=== PATIENT | male | born 1970 | race Hispanic/Latino ===

== ENCOUNTER 2018-11-25 08:22 | Outpatient (CLI) | payer BC, OTHER ==
[2018-11-25] MEDS ORDERED: Sodium Chloride 0.9% 15 ML NEB ONE (09:00)
[2018-11-25] MEDS ORDERED: Lidocaine 2% PF 100 mg/5 ml Syringe ONE (09:00)
--- NOTE | 2018-11-25 23:48 | HP ---
HISTORY OF PRESENT ILLNESS: Mr. Luis Angel Bernstein is a very pleasant 48-year-old gentleman, accompanied by his spouse, who presents [facility] the [facility] for evaluation of a nonhealing surgical wound subsequent to right whvzc-qsf-rtol amputation. The patient's states that Mr. Bernstein underwent left nbbun-pog-qgei amputation in March of 2018. She reports that the patient underwent right hdbaz-fgt-yjfd amputation in August of this year. She states that the wound was left open at surgery for healing by secondary intention. The patient underwent right ocmzw-qiz-bmkx amputation at [facility]. The patient is currently receiving dressing changes with the assistance of Home Health. The patient was referred to the Wound Center by Dr. Catrachito Angeles. PAST MEDICAL HISTORY: 1. End-stage renal disease. 2. Hypertension. 3. Diabetes mellitus type 2. 4. Cirrhosis. 5. Nephrolithiasis. PAST SURGICAL HISTORY: 1. Right eye surgery for vitreous hemorrhage. 2. Dialysis access procedures. 3. Right qkmmn-sxk-ctdz amputation in August of this year. 4. Left kxaia-uon-pydf amputation in March of 2018. MEDICATIONS: 1. Hydralazine. 2. Coreg. 3. Amlodipine. 4. Tylenol as needed. ALLERGIES: NO KNOWN DIAGNOSED ALLERGIES. SOCIAL HISTORY: Negative for tobacco or EtOH use. FAMILY HISTORY: Negative for diabetes mellitus or coronary artery disease. PHYSICAL EXAMINATION: VITAL SIGNS: Temperature 98.7, pulse 71, respirations 17, blood pressure 134/73. Accu-Chek 79. GENERAL: A 48-year-old gentleman, sitting on wheelchair in examination room, in no acute distress. HEENT: Normocephalic and atraumatic. NECK: No nuchal rigidity. CHEST: Clear to auscultation. CARDIOVASCULAR: Regular rate and rhythm. ABDOMEN: Soft. EXTREMITIES: A large wound of the right pyhna-cqb-wyzj amputation stump is present which measures approximately 2.9 x 12.3 cm. Granulation tissue is visible within the wound margins. Necrotic and nonviable tissue present within the wound margins was debrided with an excisional full-thickness debridement with the use of scissors. No purulent drainage is associated with the wound. No cellulitis of the right BKA stump is appreciated. No maceration of the skin of the periwound is noted. A popliteal pulse is palpable on the right. No significant edema of the right mvcja-dek-qqlt amputation stump is appreciated on exam today. ASSESSMENT AND PLAN: 1. Nonhealing surgical wound of right swpan-ydi-wwbx amputation stump. Arrangements will be made for the initiation of negative pressure therapy with dressing changes of the wound VAC 3 times per week with the assistance of Home Health. No antibiotics will be prescribed today based upon the appearance of the wound. I will see Mr. Berntsein 2 weeks after negative pressure therapy has been initiated. The patient and his understand and are in agreement with the preceding treatment plan. 2. End-stage renal disease. 3. Hypertension. 4. Diabetes mellitus type 2. 5. Cirrhosis. 6. Nephrolithiasis. Job ID: [id number]
== END 2018-11-25 08:23 | disposition home or self-care (01) ==
LOC: WCC 08:22
PROVIDERS: ATTEND Family Medicine
DX: T81.89XD Other complications of procedures, not elsewhere classified, subsequent encounter (principal); I12.0 Hypertensive chronic kidney disease with stage 5 chronic kidney disease or end stage renal disease; E11.22 Type 2 diabetes mellitus with diabetic chronic kidney disease; N18.6 End stage renal disease; K74.60 Unspecified cirrhosis of liver; N20.0 Calculus of kidney
CPT/HCPCS: 11042; 11045; 36416; 99203; A4218; G0463; J2001

== ENCOUNTER 2019-07-04 18:41 | Inpatient (IN) | payer BC ==
[~2019-07-04 18:41] MED LIST: Naloxone HCl 0.4 mg/ml Vial ONE
[2019-07-04] MEDS ORDERED: Fentanyl 100 MCG/2 ML VIAL ONE (19:09)
--- NOTE | 2019-07-04 19:54 | RAD ---
TWO VIEWS LEFT FEMUR: History: Left upper leg pain. FINDINGS: Two views of the left femur are limited secondary to the patient's positioning. The patient is status post below the knee amputation. There is no evidence of acute fracture or dislocation. Mild degenera tive change is seen in the hip. Extensive vascular calcifications are seen. IMPRESSION: No evidence of acute osseous abnormality. POS: C
[2019-07-04] MEDS ORDERED: Morphine 4 MG/ML VIAL ONE ×2 (20:42→22:15)
[2019-07-04 20:58] LABS: ALT (SGPT) 27 U/L (8-55); AST (SGOT) 27 U/L (5-34); Albumin 3.2 g/dL (3.5-5.0); Alkaline Phosphatase 972 U/L (40-110); Anion Gap 19 mmol/L (10-20); BUN (Urea Nitrogen) 85 mg/dL (8.9-20.6); Bilirubin, Total 1.1 mg/dL (0.2-1.2); Calc. Creatinine Clearance 0 mL/min (70-130); Calcium 8.5 mg/dL (7.8-10.44); Carbon Dioxide 27 mmol/L (22-29); Chloride 99 mmol/L (98-107); Estimated GFR-MDRD 11; Globulin 3.9 g/dL (2.4-3.5); Glucose 124 mg/dL (70-105); Potassium 6.5 mmol/L (3.5-5.1); Protein, Total 7.1 g/dL (6.0-8.3); Sodium 138 mmol/L (136-145)
[2019-07-04 21:00] LABS: Mean Corpuscular Volume 91.7 fL (78.0-98.0)
[2019-07-04 21:14] LABS: #Eosinphils 0.3 thou/uL (0.0-0.7); #Lymphocytes 1.9 thou/uL (1.20-3.40); #Monocytes 0.6 thou/uL (0.11-0.59); %Basophils 0.6 % (0.0-1.0); %Lymphocytes 27.8 % (21.0-51.0); %Neutrophils 58.6 % (42.0-75.0); Hemoglobin 11.5 g/dL (14.0-18.0); MDiff Complete? YES; Mean Corpuscular HGB CONC 32.5 g/dL (32.0-36.0); Mean Corpuscular Hemoglobin 29.8 pg (27.0-31.0); Mean Platelet Volume 9.6 fL (7.4-10.4); Platelet Clumps SLIGHT; Platelet Count 136 thou/uL (130-400); Platelet Morphology Comment Appears Adequate; RBC Distribution Width 14.7 % (11.5-14.5); Red Blood Cell (RBC) Count 3.85 mill/uL (4.70-6.10); White Blood Cell (WBC) Count 6.9 thou/uL (4.8-10.8)
--- NOTE | 2019-07-04 21:51 | RAD ---
Left hip one view HISTORY: Fall. Fracture. FINDINGS: Marked of the subtrochanteric fracture of the proximal left femur, with severe varus angula tion. One shaft width posterior displacement of the shaft in relation to the proximal femur. Osseous structures are demineralized. IMPRESSION: Subtrochanteric fracture left hip. Osteoporosis.
[2019-07-04 22:47] LABS: Prothrombin Time 13.2 SEC (12.0-14.7)
[2019-07-04] MEDS ORDERED: Morphine 2 MG/ML SYRINGE SLOW IVP PRN (22:50)
[2019-07-04] MEDS ORDERED: Dextrose 50% Abboject 50 ML SYRINGE SLOW IVP PRN (22:50)
[2019-07-04] MEDS ORDERED: Ondansetron PF 4 MG/2 ML Vial IVP PRN (22:50)
[2019-07-04] MEDS ORDERED: Insulin Regular 300 UNITS/3 ML VIAL SC PRN (22:50)
[2019-07-04] MEDS ORDERED: Dextrose 5% in Water 1,000 ML IV PRN (22:50)
--- NOTE | 2019-07-04 23:05 | RAD ---
Chest one view HISTORY: Dyspnea. COMPARISON: 07/16/2016. FINDINGS: Cardiac silhouette is magnified and enlarged. Pulmonary vasculature slightly engorged with bilateral perihilar infiltrate, right greater than left. Blunting of the right lateral costophrenic angle. No evidence of pneumothorax. IMPRESSION: Cardiomegaly with pulmonary vascular congestion and right pleural fluid. Consider CHF.
[2019-07-04 23:25] LABS: Magnesium 2.2 mg/dL (1.6-2.6); Phosphorus 5.9 mg/dL (2.3-4.7)
[2019-07-04] MEDS ORDERED: hydrALAZINE 20 MG/ML VIAL ONE (23:47)
[2019-07-05 00:23] LABS: HBSAg Index 0.16 S/CO (0-0.99); Hep B Surf Ag Non-Reactive S/CO (NonReactive)
[2019-07-05] MEDS ORDERED: Morphine 4 MG/ML VIAL ONE (00:25)
--- NOTE | 2019-07-05 00:53 | HP ---
TRAUMA SURGEON: Roger Richmond MD CONSULTING PHYSICIANS: Gus Lam MD and Dr. Angeles. HISTORY OF PRESENT ILLNESS: The patient is a 48-year-old male, presented to the emergency department after a mechanical fall out of his wheelchair with left hip pain. The patient was found to have a left subcapital hip fracture. He has a history of ESRD on dialysis, hypertension, diabetes, cirrhosis and nephrolithiasis. He is a dialysis patient and receives dialysis Friday, Friday, and Friday. He also has abrasions to the bilateral distal portion of his stump at the location of his bilateral BKA . Upon evaluation, the patient was alert and complained of left-sided hip tenderness. He denied any chest pain or shortness of breath. He is hyperkalemic and we are planning to dialyze him today. He denies any loss of consciousness. He reports that he fell out of his wheelchair as he was trying to maneuver around furniture to go from the [employer] tree to the kitchen. REVIEW OF SYSTEMS: All additional 10-point review of systems negative except as indicated above. PAST MEDICAL HISTORY: ESRD on dialysis, hypertension, diabetes, cirrhosis, and nephrolithiasis. PAST SURGICAL HISTORY: He has bilateral BKA, right eye surgery, dialysis access placement. SOCIAL HISTORY: The patient lives at home with his . He denies tobacco, drug, or alcohol use. MEDICATIONS: 1. Hydralazine. 2. Carvedilol. 3. Clonidine. ALLERGIES: NO KNOWN DRUG ALLERGIES. PHYSICAL EXAMINATION: VITAL SIGNS: Temperature 97.8, , oxygen saturation 95% on room air, and blood pressure 193/102. PRIMARY SURVEY: Airway intact. Adequate breath sounds bilaterally. 2+ pulses in the bilateral radials and femorals. He has abrasions to his bilateral BKA site, though bleeding is controlled. GCS 15. Gross motor and sensation are intact. No bruising or external bleeding. SECONDARY SURVEY: HEAD: Normocephalic and atraumatic. No gross palpable skull deformities. EYES: Pupils 3-2, equal, round, and reactive to light. ENT: No hemotympanum. No epistaxis. No septal hematoma. Midface stable to manipulation. No blood in the oropharynx. Dentition is intact. No anterior neck injury/crepitus/tenderness. C-SPINE: No step-offs or deformities. Nontender. C-collar not in place. CHEST: Nontender. No crepitus. No abrasions or ecchymosis noted. Equal chest movement. ABDOMEN: Soft, nontender, and nondistended. PELVIS: Stable to palpation. Nontender. No abrasions or ecchymosis. RECTAL: Deferred. GENITOURINARY: Deferred. EXTREMITIES: Bilateral BKA with small bilateral abrasions to those lower extremities. Bleeding is controlled. 2+ pulses in bilateral radials and femorals. BACK/SPINE: No step-offs or deformities or tenderness to palpation of the thoracic or lumbar spine. No abrasions or ecchymosis. NEUROLOGIC: 5/5 strength in bilateral client technologies specialist and lower extremities. Gross normal sensation x4 extremities. LABORATORY FINDINGS: White count 6.9, hemoglobin 11.5, hematocrit 35.3, platelets 136. INR 1.0. Sodium 138, potassium 6.5, chloride 99, bicarb 27, BUN 85, creatinine 5.42, glucose 124, phosphorus 5.9, magnesium 2.2, AST 27, ALT 27, alkaline phosphatase 972, bilirubin 1.1. DIAGNOSTIC FINDINGS: X-ray of the left femur demonstrates no evidence of acute osseous abnormality. X-ray of the left hip demonstrate subtrochanteric fracture of the left hip. Chest x-ray demonstrates cardiomegaly and pulmonary vascular congestion and right pleural fluid. Consider CHF. ASSESSMENT: 1. Status post mechanical fall from wheelchair. 2. Left subtrochanteric hip fracture. 3. Hyperkalemia. 4. Hypertension, uncontrolled. 5. Abrasions to bilateral BKA. 6. History of end-stage renal disease, hypertension, diabetes, cirrhosis, and nephrolithiasis. PLAN: The patient will be admitted to the surgical floor. He is to receive dialysis today for hyperkalemia. He will go to the OR tomorrow with Orthopedic Surgery for fixation of the left hip. We will restart all of his home antihypertensive medications. ER physician to give the patient medications for hypertension and pain control. Trauma will take over from there and if the patient continues to be hypertensive, we will treat that. He will be n.p.o. We will not give him any IV fluids at this time. He is to go to the OR with Orthopedic Surgery tomorrow. Postoperatively, he will work with Physical and Occupational Therapy. The patient's data power consultant is Dr. Angeles. He was contacted by the emergency room physician and is coordinating dialysis for the patient jenny. Job ID: [id number]
[2019-07-05] MEDS: Morphine 4 MG/ML VIAL SLOW IVP PRN ×4 (02:46→12:33)
[2019-07-05] MEDS: hydrALAZINE 20 MG/ML VIAL SLOW IVP PRN ×2 (04:44→12:07)
[2019-07-05 04:52] LABS: #Eosinphils 0.1 thou/uL (0.0-0.7); #Lymphocytes 1.1 thou/uL (1.20-3.40); #Monocytes 0.8 thou/uL (0.11-0.59); #Neutrophils 6.3 thou/uL (1.40-6.50); %Basophils 0.5 % (0.0-1.0); %Eosinophils 1.2 % (0.0-10.0); %Lymphocytes 13.2 % (21.0-51.0); %Monocytes 9.2 % (0.0-10.0); %Neutrophils 75.9 % (42.0-75.0); Hemoglobin 11.2 g/dL (14.0-18.0); Mean Corpuscular HGB CONC 32.8 g/dL (32.0-36.0); Mean Corpuscular Hemoglobin 29.5 pg (27.0-31.0); Mean Platelet Volume 9.4 fL (7.4-10.4); Platelet Count 156 thou/uL (130-400); RBC Distribution Width 14.5 % (11.5-14.5); White Blood Cell (WBC) Count 8.3 thou/uL (4.8-10.8)
[2019-07-05 05:25] LABS: Anion Gap 16 mmol/L (10-20); BUN (Urea Nitrogen) 30 mg/dL (8.9-20.6); Calc. Creatinine Clearance 30 mL/min (70-130); Calcium 9.3 mg/dL (7.8-10.44); Carbon Dioxide 26 mmol/L (22-29); Chloride 101 mmol/L (98-107); Estimated GFR-MDRD 30; Glucose 96 mg/dL (70-105); Magnesium 1.9 mg/dL (1.6-2.6); Phosphorus 2.9 mg/dL (2.3-4.7); Potassium 3.8 mmol/L (3.5-5.1); Sodium 139 mmol/L (136-145)
--- NOTE | 2019-07-05 07:47 | RAD ---
XR Hip Lt 2-3 View INDICATION: Left hip fracture COMPARISON: July 04, 2019 FINDINGS: Bones: There is diffuse osteopenia. There is a comminuted, varus angulated left hip intertrochanteric fracture. There is prominent lucency surrounding the left knee on the crosstable lateral evaluation. Hip joint: Moderate osteoarthrosis of the left hip. SI joints and symphysis pubis: Radiographically normal. Intrapelvic contents: Visualized bowel gas pattern is within normal limits. Surrounding soft tissues: Radiographically normal. IMPRESSION: 1. Angulated, comminuted, left hip intertrochanteric fracture. 2. Prominent lucency involving the left knee joint. Dedicated left knee radiographs are recommended. This may be projectional in nature and related to the patient's severe osteopenia. Left knee fracture is not excluded.
--- NOTE | 2019-07-05 08:42 | CON ---
DATE OF CONSULTATION: This is Sebastian West PA-C dictating a report for Gus Lam MD. HISTORY OF PRESENT ILLNESS: We were asked by Trauma and the ER to see the patient. The patient's is at the bedside and helping us interpret. He is wheelchair to bedbound male. He has bilateral BKAs. He was getting out of his wheelchair yesterday, slipped. He hit both ends of his stump and they are a little bit raw and bleeding, right worse than left, and he sustained a left subtrochanteric fracture. He is in quite a bit of pain. He is a little contracted up, that is more comfortable for him per his . He is able to straighten both of his legs. There are no other injuries per other than the ones discussed. He was dialyzed last night. He usually gets dialysis on Friday, Wednesdays, and Fridays. His potassium was quite high, but this morning it was down to 3.8. PAST MEDICAL HISTORY: Positive for ESRD on dialysis, hypertension, diabetes, cirrhosis, nephrolithiasis. SURGERIES: Bilateral BKA, right eye surgery, dialysis access placement. SOCIAL HISTORY: Lives at home with his . No alcohol or drug use or tobacco use currently. CURRENT MEDICATIONS: 1. Hydralazine. 2. Carvedilol. 3. Clonidine. HOME MEDICATIONS LIST: Include, 1. Nifedipine. 2. Cipro. 3. Calcium acetate. 4. Tylenol. These have not been verified as of yet. ALLERGIES: NO KNOWN DRUG ALLERGIES. REVIEW OF SYSTEMS: Denies any chest pain or shortness of breath. No bowel or bladder issues currently, but has a lot of left lower extremity pain, especially with any movement. Again, is interpreting for us. PHYSICAL EXAMINATION: GENERAL: Small appearing male. Speech clear per . He is moaning in pain and per , oriented, answering questions well. HEENT: Face is symmetric. Tongue midline. NECK: Supple. Trachea midline. EXTREMITIES: Upper extremities, equal size, shape, and symmetry. Normal bulk and tone with dressing to the right upper extremity, where his dialysis port is located. RESPIRATORY: Respirations 16. No acute distress. EXTREMITIES: Bilateral lower extremities obvious, BKAs, dressing to the right stump. Some mild abrasions of the stump. Any movement of the left hip causes him dire amount of pain. He keeps it in a flexed position as this is more comfortable for him per his . ASSESSMENT: 1. Multiple health issues. 2. Left subtrochanteric fracture. PLAN: We would like to take the patient to the operating room, but health-dueñas, he needs to be cleared by the Trauma team, who is doing medical management, who went over surgery procedure with and , went over the risks and benefits, which are a little bit higher with her , and I explained this, and the patient's questions and concerns were addressed, and they are amenable to go forth with surgery. We just need medical clearance first. Once he is cleared, we will get him on the surgery schedule. If he is not able to go today, we will let him eat and get plan for surgery tomorrow. I have explained this to the and the patient. Again, they have a good understanding of what needs to be done for the patient. Job ID: [id number]
[2019-07-05] MEDS ORDERED: FLU VACC QS2019-20(6MOS UP)/PF 60 MCG/0.5 ML SYRINGE IM ONE (09:00)
[2019-07-05] MEDS ORDERED: Famotidine 20 MG TAB PO SCH (09:00)
--- NOTE | 2019-07-05 09:37 | RAD ---
XR Hip Lt 1 View INDICATION: Left hip fracture COMPARISON: Prior dated July 04, 2019 FINDINGS: Bones: The comminuted left intertrochanteric hip fracture is better demonstrated. There is moderate v arus malalignment remaining. There is diffuse osteopenia. Hip joint: There is moderate osteoarthrosis of the left hip. SI joints and symphysis pubis: Radiographically normal. Intrapelvic contents: Visualized bowel gas pattern is within normal limits. Surrounding soft tissues: There is severe vascular calcifications of the surrounding soft tissues. IMPRESSION: 1. Moderate varus angulated left hip intertrochanteric fracture. 2. Severe osteopenia
[2019-07-05] MEDS: Carvedilol 6.25 MG TAB PO SCH ×2 (09:41→20:58)
[2019-07-05] MEDS: Senokot S 8.6-50 MG TAB PO SCH ×2 (09:41→20:57)
[2019-07-05] MEDS: cloNIDine 0.1 MG TAB PO SCH ×2 (09:41→20:58)
[2019-07-05] MEDS: hydrALAZINE 25 MG TAB PO SCH ×2 (09:41→20:58)
[2019-07-05] MEDS: Polyethylene Glycol 3350 17 GM Packet PO SCH (09:42)
[2019-07-05] MEDS ORDERED: CEFAZOLIN 2 GM in Premix Bag 1 BAG IVPB SCH (09:45)
[2019-07-05] MEDS ORDERED: Ventilator Sedation Protocol 1 EACH FS ONE (13:13)
[2019-07-05] MEDS ORDERED: DISCONTINUE PREVIOUS NARCOTIC PAIN MEDICATIONS AND BENZODIAZEPINES FS SCH (13:15)
[2019-07-05] MEDS ORDERED: Fentanyl BOLUS 250 ML IVPB PRN (13:15)
[2019-07-05] MEDS ORDERED: Propofol 1,000 MG/100 ML VIAL IV PRN (13:15)
[2019-07-05] MEDS ORDERED: Lorazepam 2 MG/ML VIAL SLOW IVP PRN (13:15)
[2019-07-05] MEDS ORDERED: fentaNYL Citrate/PF 2,000 MCG in Sodium Chloride 0.9% 60 ML IV SCH (13:15)
[2019-07-05] MEDS ORDERED: Propofol BOLUS 1,000 MG/100 ML VIAL IV PRN (13:15)
[2019-07-05] MEDS ORDERED: Morphine 2 MG/ML SYRINGE SLOW IVP PRN (13:15)
--- NOTE | 2019-07-05 13:18 | RAD ---
Chest AP view INDICATION: Chest pain COMPARISON: July 04, 2019 FINDINGS: Lungs:Persistent perihilar airspace opacity is seen involving the right and left lungs. Cardiac silhouette:Cardiomegaly persists Pulmonary vasculature:Pulmonary vascular congestion persists Pleural spaces:There are small bilateral pleural effusions are stable Upper abdomen:There is a new gastric catheter projecting below the left hemidiaphragm and beyond the sjnqo-wv-dkjr. Osseous structures: No acute osseous abnormality. Additional findings:The patient is intubated. The ET tube tip projects near the right mainstem bronch us. Recommend retraction of approximately 2 cm. A pacer pad overlies the epigastric abdominal region and left anterior chest wall. IMPRESSION: Interval intubation. ET tube tip projects near the right mainstem bronchus. Recommend ret raction. Findings were called to the CCU nurse caring for this patient who reported that the ET tube tip was retracted. Cardiomegaly, pulmonary vascular congestion and perihilar airspace opacities persist. Small bilateral pleural effusions are stable.
[2019-07-05 13:20] LABS: Actual Bicarbonate (HCO3a) 24.3 mEq/L (22-28); Base Excess (BEa) 1.7 mEq/L (-2.0 to +3.0); CO2 Tension 31.6 mmHg (35.0-45.0); Carboxyhemoglobin (COHb) 1.6 gm% (0.0-3.0); Hemoglobin (Hb) 11.1 g/dL (14.0-18.0); O2 Tension (PaO2) 104.6 mmHg (80.0-100.0); Potassium - ABG Lab 4.47 mmol/L (3.70-5.30)
[2019-07-05 14:21] LABS: CKMB 9.6 ng/mL (0-6.6)
[2019-07-05 14:41] LABS: HBCM Index 0.05 S/CO (0-0.79); HBSAg Index 0.17 S/CO (0-0.99); Hep A IgM AB Non-Reactive (NonReactive); Hep B Surf Ag Non-Reactive S/CO (NonReactive); Hep C IgG Ab Non-Reactive (NonReactive); Hep C Index 0.11 S/CO (0-0.79); Hepatitis B Core IgM Abs Non-Reactive (NonReactive)
--- NOTE | 2019-07-05 15:11 | PRG ---
DATE OF SERVICE: 07/05/2019 SUBJECTIVE: Mr. Bernstein is a 48-year-old man, who is status post bilateral BKA's. The patient has a history of chronic kidney disease, dialysis dependent. He was admitted yesterday following a fall off his wheelchair, sustaining a left subtrochanteric femur fracture. He underwent dialysis yesterday extracting over 3 L. He has been evaluated by Orthopedic Surgery, who was contemplating surgical intervention tomorrow. This morning, at bedside with his in the room, the patient apparently developed a sudden onset difficulty breathing. Jessica cramer was called. The patient never lost his pulse. He did, however, have emesis. The patient was electively intubated in transfer to the Intensive Care Unit. He is currently sedated on propofol. OBJECTIVE: VITAL SIGNS: Noted with a blood pressure of 212/112, pulse 95, respiratory rate 18, oxygen saturation 100% on FiO2 of 100%. HEENT: Pupils equal, round, and reactive to light bilaterally. He has no jugular venous distention noted. HEART: Reveals regular rate and rhythm with 2/6 systolic murmur in the left sternal border. LUNGS: Clear to auscultation bilaterally. Breathing, regular and nonlabored. ABDOMEN: Soft and obese. NEUROLOGIC: At this point is suboptimal. The patient is currently sedated. He was intubated with etomidate and succinylcholine. LABORATORY FINDINGS: Includes arterial blood gas; pH of 7.50, pCO2 of 32, pO2 of 105, base excess 1.7, and this was on FiO2 of 40% post intubation. Troponin I is elevated at 0.518. Metabolic profile this morning included sodium of 139, potassium of 3.8, chloride is 101, bicarb is 26, BUN is 30, creatinine is 2.36, glucose is 137, magnesium is 1.9, and phosphorus is 2.9. CBC this morning as well was noted with 8300 white blood cells, hemoglobin and hematocrit stable at 11.2 and 34.2 respectively. Platelet count 136,000. IMPRESSION: 1. Post injury day #1, status post fall from a wheelchair with a resultant left subtrochanteric femur fracture. 2. Acute posttraumatic respiratory failure. PLAN: 1. We will obtain a 12-lead EKG and echocardiogram to rule out acute myocardial infarction. 2. Surgical intervention will be suspended at this time. We discussed with family with regard to code status and future plans. Prognosis for this patient is quite guarded. Total Critical Care time : 40 minutes Job ID: [id number] MTDD
[2019-07-05 20:00] LABS: Critical Call Chem Troponin I RESULT DECREASING
[2019-07-05 20:20] LABS: CKMB 8.6 ng/mL (0-6.6); Critical Call CKMB RESULT DECREASING
[2019-07-05] MEDS: Famotidine/PF 20 mg/2ml Vial SLOW IVP SCH (20:58)
--- NOTE | 2019-07-06 01:50 | PRG ---
DATE OF SERVICE: 07/05/2019 SUBJECTIVE: The patient was seen this evening during rounds in the ICU, intubated and sedated. The patient reports no acute events since he arrived to the CCU. The patient was intubated after a code blue due to respiratory distress during the day. Since that time, he has been hemodynamically stable on the ventilator. He is following commands and moving all extremities. Occasionally, he will open his eyes while intubated. He does not appear to be in any distress. OBJECTIVE: VITAL SIGNS: Temperature 99.2, pulse 71, respirations 17, oxygen saturation 100% on the ventilator, blood pressure 114/69. GENERAL: Middle-aged male, lying in bed with no signs of acute distress. PULMONARY: Equal chest rise and fall. Clear breath sounds bilaterally. No signs of acute respiratory distress. ABDOMEN: Soft, nontender, nondistended. EXTREMITIES: 2+ pulses in bilateral upper extremities. Bilateral lower extremity with BKA. There are bandages over his BKA abrasions bilaterally. He does have some deformity to the left hip. NEUROLOGIC: GCS is 10-11T, eyes 4/3, verbal 1, motor 6. LABORATORY FINDINGS: There are no new laboratory findings to discuss. DIAGNOSTIC FINDINGS: There are no new diagnostic findings to discuss. ASSESSMENT: 1. Mechanical fall from wheelchair. 2. Left subtrochanteric hip fracture. 3. Hyperkalemia, resolved. 4. Abrasions to bilateral below-knee amputations. 5. Acute respiratory distress, now on ventilator. 6. Elevated troponins, likely secondary to cuq-TO-povpvczrq myocardial infarction. 7. History of end-stage renal disease, on dialysis; hypertension; diabetes; cirrhosis; nephrolithiasis. PLAN: Continue the patient on the ventilator overnight. Continue n.p.o., NG tube to low intermittent wall suction. Continue propofol and fentanyl for sedation and pain control. We will start the patient on IV Pepcid as well. Day Team did speak to Dr. Baird of Cardiology for consult due to rising troponins. He advised us that consult can wait till tomorrow morning. Dr. Aranda will be called tomorrow for an official consult. An echo was completed, which demonstrated EF of 55% to 60% with [id number]-fhnwhsvi tricuspid regurg. Palliative Care has also been consulted for the patient. Ortho to make determination of possible surgical intervention tomorrow after his condition has been monitored overnight and after discussions with family and Palliative Care. Job ID: [id number]
[2019-07-06 04:46] LABS: #Eosinphils 0.1 thou/uL (0.0-0.7); #Lymphocytes 1.2 thou/uL (1.20-3.40); #Monocytes 0.9 thou/uL (0.11-0.59); #Neutrophils 8.3 thou/uL (1.40-6.50); %Basophils 0.3 % (0.0-1.0); %Eosinophils 0.7 % (0.0-10.0); %Lymphocytes 11.4 % (21.0-51.0); %Monocytes 8.8 % (0.0-10.0); %Neutrophils 78.8 % (42.0-75.0); Hemoglobin 9.4 g/dL (14.0-18.0); Mean Corpuscular HGB CONC 32.9 g/dL (32.0-36.0); Mean Corpuscular Hemoglobin 29.8 pg (27.0-31.0); Mean Corpuscular Volume 90.6 fL (78.0-98.0); Platelet Count 125 thou/uL (130-400); RBC Distribution Width 14.8 % (11.5-14.5); Red Blood Cell (RBC) Count 3.16 mill/uL (4.70-6.10); White Blood Cell (WBC) Count 10.6 thou/uL (4.8-10.8)
[2019-07-06 05:08] LABS: Troponin I 5.915 ng/mL (< 0.028)
[2019-07-06 05:23] LABS: Anion Gap 20 mmol/L (10-20); BUN (Urea Nitrogen) 57 mg/dL (8.9-20.6); Calc. Creatinine Clearance 15 mL/min (70-130); Calcium 8.6 mg/dL (7.8-10.44); Carbon Dioxide 22 mmol/L (22-29); Chloride 102 mmol/L (98-107); Estimated GFR-MDRD 13; Glucose 63 mg/dL (70-105); Magnesium 1.9 mg/dL (1.6-2.6); Phosphorus 4.9 mg/dL (2.3-4.7); Sodium 139 mmol/L (136-145)
[2019-07-06 07:33] LABS: Actual Bicarbonate (HCO3a) 21.1 mEq/L (22-28); Calcium, Ionized 1.11 mmol/L (1.12-1.30); Carboxyhemoglobin (COHb) 0.8 gm% (0.0-3.0); O2 Tension (PaO2) 85.8 mmHg (80.0-100.0); Potassium - ABG Lab 4.82 mmol/L (3.70-5.30)
--- NOTE | 2019-07-06 08:52 | RAD ---
CHEST ONE VIEW: INDICATIONS: History of intubation status post respiratory arrest. COMPARISON: Prior exam dated 07/05/2019 at 12:44 p.m. FINDINGS: There is a worsening central edema pattern and bilateral pleural effusions, right greater than left. ET tube and gastric catheter are in the expected positions. Cardiomegaly and pulmonary vascular conge stion persists. Osseous structures are unchanged. IMPRESSION: Worsening congestive heart failure. POS: CET
[2019-07-06] MEDS: Carvedilol 6.25 MG TAB PO SCH ×2 (09:11→20:53)
[2019-07-06] MEDS: hydrALAZINE 25 MG TAB PO SCH ×2 (09:11→20:53)
[2019-07-06] MEDS: cloNIDine 0.1 MG TAB PO SCH ×2 (09:11→20:53)
[2019-07-06] MEDS: Senokot S 8.6-50 MG TAB PO SCH ×2 (09:12→22:10)
[2019-07-06] MEDS: Polyethylene Glycol 3350 17 GM Packet PO SCH (09:12)
[2019-07-06] MEDS: Aspirin Chewable 81 MG TAB PO SCH ×2 (09:14→22:10)
[2019-07-06] MEDS: Famotidine/PF 20 mg/2ml Vial SLOW IVP SCH (09:14)
--- NOTE | 2019-07-06 11:02 | PRG ---
DATE OF SERVICE: 07/06/2019 SUBJECTIVE: Mr. Bernstein is a 48-year-old man, status post bilateral BKA. The patient fell off wheelchair, sustaining a left subtrochanteric hip fracture. Subsequently developed acute respiratory failure yesterday, requiring intubation and admission to the intensive care unit. Additional workup revealed rising troponin I, though no ST elevation on the EKG. Overnight, the patient remains stable. This morning, he is slightly sedated, awakens to voice, and follows commands. He is tolerating hemodialysis. OBJECTIVE: VITAL SIGNS: This morning include blood pressure 127/80, pulse 77, respiratory rate 17, maximum temperature in last 24 hours is 100.1 degrees Fahrenheit, and oxygen saturation is 100% on FiO2 of 40% on mechanical ventilator support. HEART: Regular rate and rhythm with 2/6 systolic murmur in the left sternal border. LUNGS: Clear to auscultation bilaterally. Breathing, regular and nonlabored. ABDOMEN: Soft, nontender, nondistended. NEUROLOGIC: No focal deficits present. LABORATORY FINDINGS: Today includes a CBC with 10,600 white blood cells, hemoglobin and hematocrit 9.4 and 28.6 respectively, platelet count 125,000. Metabolic profile; sodium 139, potassium 5.0, chloride is 102, bicarb is 22, BUN is 57, creatinine is 4.75, glucose is 63, magnesium 1.9, and phosphorus is 4.9. Troponin I yesterday was initially 0.518, increased to 1.746, then 3.154 and this morning at 5.915. IMPRESSION: 1. Acute hhe-FM-ffpewnsff myocardial infarction, although echocardiogram which was obtained yesterday revealed ejection fraction 55% to 60% with normal right ventricular size and function. 2. Acute posttraumatic respiratory failure, improving. 3. Post-injury day #2, status post fall from a wheelchair with a subtrochanteric left hip fracture. 4. Chronic renal failure, dialysis dependent. 5. Acute hypoglycemia. PLAN: 1. Wean and extubate the patient accordingly. 2. Surgical intervention will be suspended at this time as the patient just had an NM. 3. We will start aspirin therapy meanwhile. 4. We will discuss with the patient and family post-extubation with regard to further interventions. Total critical care time is 45 minutes. Job ID: [id number]
[2019-07-06] MEDS ORDERED: EPOETIN ALFA-EPBX (ESRD) 3,000 UNIT/ML VIAL SC SCH (12:00)
[2019-07-06] MEDS ORDERED: traMADol HCl 50 MG TAB PO SCH ×2 (12:00→13:00)
[2019-07-06] MEDS ORDERED: traMADol HCl 50 MG TAB PO PRN (12:15)
[2019-07-06] MEDS ORDERED: Acetaminophen 1,000 MG in Premix Bag 1 BAG IVPB SCH (13:00)
[2019-07-06] MEDS ORDERED: HYDROcodone/Acetaminophen 7.5/325 mg Tablet PO PRN ×2 (13:43)
[2019-07-06] MEDS ORDERED: HYDROcodone/Acetaminophen 10/325 mg Tablet PO PRN ×2 (16:40)
[2019-07-06] MEDS: Cyclobenzaprine 10 MG TAB PO PRN (17:02)
--- NOTE | 2019-07-06 19:30 | CON ---
DATE OF CONSULTATION: 07/06/2019 REASON FOR CONSULTATION: Elevated troponin, recent cardiopulmonary arrest. HISTORY OF PRESENT ILLNESS: Mr. Bernstein is an unfortunate 48-year-old gentleman with history of end-stage renal disease, severe PVD, status post amputation, who recently fell from his wheelchair and broke his hip. He was on the surgical floor, when he developed a respiratory arrest. Jessica cramer was called. He was subsequently intubated. He is currently intubated during my visit. The history was obtained from his . She states he underwent coronary angiography in August 2018 at [facility]. The results are currently not available. She states he is to follow up with [facility] on a yearly basis. She is unsure what the results were. She states coronary angiography was performed and he was therefore able to undergo surgery and amputation to his leg. She states he currently denies chest pain, pressure, or associated symptoms while at home. PAST MEDICAL HISTORY: End-stage renal disease, hypertension, severe PVD, diabetes mellitus, cirrhosis, nephrolithiasis, bilateral BKA, right eye surgery. SOCIAL HISTORY: No current tobacco or alcohol use. HOME MEDICATIONS: Include; 1. Carvedilol. 2. Clonidine. 3. Hydralazine. ALLERGIES: NONE. REVIEW OF SYSTEMS: Unobtainable. He is currently intubated and sedated. PHYSICAL EXAMINATION: GENERAL: The patient is currently intubated and sedated. VITAL SIGNS: Blood pressure 103/67, pulse 75, respirations 20. NEUROLOGIC: The patient is alert and oriented x3 with no focal neurologic deficits. HEENT: Sclerae without icterus. Mouth has moist mucous membranes with normal pallor. NECK: No JVD. Carotid upstroke brisk. No bruits bilaterally. LUNGS: Clear to auscultation with unlabored respirations. BACK: No scoliosis or kyphosis. CARDIAC: Regular rate and rhythm with normal S1 and S2. No S3 or S4 noted. No significant rubs, murmurs, thrills, or gallops noted throughout the precordium. PMI is not displaced. There is no parasternal heave. ABDOMEN: Soft, nontender, nondistended. No peritoneal signs present. No hepatosplenomegaly. No abnormal striae. EXTREMITIES: Bilateral BKA. SKIN: No gross abnormalities. PERTINENT LABORATORY DATA: Hemoglobin 9.4, hematocrit 28.6. Peak troponin 5.9. Creatinine 4.75, sodium 139. IMPRESSION: 1. Recent cardiopulmonary arrest. 2. End-stage renal disease. 3. Elevated troponin. 4. Cirrhosis. 5. Recent hip fracture. RECOMMENDATIONS: I had a long discussion with the about his current situation. He certainly would need to have his hip replaced, but if done within the next several weeks, his risk of complication is elevated. The benefits at this point would have to outweigh the risks. We will have to discuss with Orthopedic Surgery. I did have a brief discussion with Dr. Grider. He states his hip on chest x-ray appears brittle and may not hold even with surgery. At this point, we will continue close observation. Vent management will be per Pulmonary. We will try to obtain records from the [facility] to assess his coronary anatomy noted in August. Otherwise, we will continue to follow with you. Job ID: [id number] MTDD
--- NOTE | 2019-07-07 01:30 | PRG ---
DATE OF SERVICE: 07/06/2019 SUBJECTIVE: Mr. Bernstein is a 48-year-old man status post ground level fall. He sustained left hip fracture. He is also status post bilateral BKA, dialysis, and he also developed respiratory distress in which he required intubation and he was extubated successfully today. He is also under dialysis. Tool Shaper Set Up Operator decided to do dialysis everyday today. Currently, the patient is slightly lethargic. He is able to answer questions. He voiced concern that his left leg is painful to movement. Currently, the patient's nurse reports the appetite has not been good. He is not be able to finish his meal. He is totally . He developed no fever or shortness of breath. PHYSICAL EXAMINATION: VITAL SIGNS: Heart rate is 65 with blood pressure slightly down to systolic 85 and 88, O2 saturation 94% on room air, respiratory rate is 18. LUNGS: The patient is breathing nonlabored. Clear bilaterally. HEART: Regular rate and rhythm. ASSESSMENT: 1. Status post ground level fall. 2. Left hip fracture, conservative treatment at the moment. 3. [id number] myocardial infarction, conservative treatment. 4. Chronic kidney disease, on dialysis. 5. Posttraumatic respiratory failure, improved. 6. Status post bilateral below-knee amputation. 7. Diabetes. PLAN: Check cortisone level. Due to poor appetite, poor intake. The patient under dialysis everyday. Initiate albumin 5% transfusion. We will monitor blood pressure regularly in ICU. Currently, the patient's plan is hospice orientation and the patient is on DNR. Dialysis everyday per Nephrology. Supportive care and nonpharmacological DVT prophylaxis. Job ID: [id number]
[2019-07-07] MEDS ORDERED: Hydrocortisone Sod Succ/PF 100 mg/2 ml Vial IVP SCH (06:30)
[2019-07-07] MEDS ORDERED: Acetaminophen 325 MG TAB PO PRN (06:39)
[2019-07-07] MEDS: Calcium Acetate 667 MG CAP PO SCH ×2 (08:09→17:39)
[2019-07-07] MEDS: Aspirin Chewable 81 MG TAB PO SCH ×2 (08:10→20:02)
[2019-07-07] MEDS: Senokot S 8.6-50 MG TAB PO SCH ×2 (08:10→20:02)
[2019-07-07] MEDS: Polyethylene Glycol 3350 17 GM Packet PO SCH (08:10)
[2019-07-07] MEDS: Carvedilol 6.25 MG TAB PO SCH ×2 (08:11→20:02)
[2019-07-07] MEDS: cloNIDine 0.1 MG TAB PO SCH ×2 (08:11→20:02)
[2019-07-07] MEDS: hydrALAZINE 25 MG TAB PO SCH ×2 (08:11→20:02)
[2019-07-07] MEDS ORDERED: Famotidine/PF 20 mg/2ml Vial SLOW IVP SCH (09:00)
--- NOTE | 2019-07-07 09:12 | PRG ---
DATE OF SERVICE: 07/07/2019 SUBJECTIVE: Mr. Bernstein extubated today. He has no current complaints. He appears to still be groggy. He may have some metabolic encephalopathy. Blood pressure is marginal. PHYSICAL EXAMINATION: VITAL SIGNS: Blood pressure 97/90, pulse 68, respirations 20. LUNGS: Clear to auscultation. HEART: Regular rate and rhythm. ABDOMEN: Soft, nontender, nondistended. EXTREMITIES: Bilateral BKA. PERTINENT LABORATORY DATA: Hemoglobin 9.4, creatinine 4.75. Peak troponin 5.9. Review of medical records from [facility], the patient with moderate disease of the LAD and right coronary artery and circumflex artery. IMPRESSION: 1. Type 2 myocardial infarction, likely due to recent respiratory distress. 2. End-stage renal disease. 3. Cirrhosis. 4. Severe peripheral vascular disease. 5. Recent hip fracture. RECOMMENDATIONS: 1. Discussed the case with Dr. Grider. The patient would be considered high risk for complications if surgery performed given his elevated troponin. He will also likely need repeat angiography for concern of progression of his coronary anatomy. I am unsure whether moderate disease would contribute to troponin of 5.9. 2. After discussing with Dr. Grider, it does not appear like hip replacement would be Mr. Bernstein's best interest. He has significant osteoporosis and unlikely to hold new hardware. This combined with high risk of complications. The risks and benefits ratio are not in Mr. Bernstein's favor. I would certainly agree. From a CV standpoint, I would recommend continued medical therapy. We would not proceed with angiography. We will only proceed with angiography if the decision made to proceed with hip replacement, although would agree with the high risk for morbidity and mortality. Hospice will be introduced. Otherwise, from my standpoint, I have no further recommendations. I will be out of the office for next 5 days. Please re-consult if other questions or concerns arise. Job ID: [id number]
[2019-07-07] MEDS ORDERED: Lorazepam 2 MG/ML VIAL SLOW IVP PRN (12:05)
[2019-07-07] MEDS ORDERED: Morphine 2 MG/ML SYRINGE SLOW IVP PRN (12:06)
--- NOTE | 2019-07-07 12:14 | PDOC.PALCO ---
Palliative Care Consult - Consult Details Requesting Physician: Dr Grider Reason for Consult: family support, complex decision-making Family Members Present: - Pertinent HPI 48 year old male who had a mechanical fall out of the wheelchair and subsequent left hip pain. Evaluation in the emergency room identified hip fracture. Admitted, with subsequent NM. Patient is a dialysis patient and receiving dialysis inpatient. Unable to repair hip due to poor outcome related to osteoarthritis as well as severely compromised cardiovascular status. Dr Grider visited with patient and at length using ranch manager. Continued conversation with patient and his in relation to goals of care. - Pertinent PMH ESRD on dialysis, htn, diabetes, cirrhosis, nephrolithiasis. - Social History Smoking Status: Never smoker Smoking: no tobacco exposure Alcohol Use: none Drug Use History: none Living Situation: - Medications MAR Reviewed: Yes - Allergies Allergies/Adverse Reactions: Allergies Allergy/AdvReac Type Severity Reaction Status Date / Time No Known Allergies Allergy Verified 02/28/16 16:38 - Subjective mildly lethargic but fully oriented, receiving dialysis. - ROS Constitutional: weakness Respiratory: other (denies cough, shortness of breath) Cardiology: other (currnetly denies chest pain or discomfort) - Objective Vital Signs: Vital Signs - Most Recent Temp Pulse Resp BP Pulse Ox 98.4 F 74 19 97/70 100 07/07/19 07:00 07/07/19 08:11 07/06/19 08:00 07/07/19 08:11 07/07/19 08:00 Palliative Performance Scale: 30 - Physical Exam Constitutional: ill appearing HEENT: EOMI, moist MMs Respiratory: unlabored breathing Cardiovascular: RRR Genitourinary: ruelas catheter Musculoskeletal: no cyanosis, no clubbing Deviation from normal: bilateral lower ext amputation Neurology: normal speech Skin: cap refill <2 seconds - Problem List (1) Palliative care encounter Code(s): Z51.5 - ENCOUNTER FOR PALLIATIVE CARE Current Visit: Yes Status: Acute (2) End stage renal disease Code(s): N18.6 - END STAGE RENAL DISEASE Current Visit: No Status: Chronic (3) Subtrochanteric fracture of hip Code(s): S72.23XA - DISPLACED SUBTROCHANTERIC FRACTURE OF UNSP FEMUR, INIT Current Visit: Yes Status: Acute - Plan/Recommendations Plan: Lengthy conversation with patietn and , ranch manager utilized. [facility] contacted for evaluation. Will be here at 3:30 to assess for GIP or inpatient across the street. and patient at peace and with a strong ling. *Will initiate comfort measures after returns from work at 3:30 Ativan and Morphine added for comfort measures *HBV to meet with patient and at 3:30 D Jean manager of creative services RN also following / please refer to notes in note section. [60] minutes spent on this encounter with >50% of the time in counseling and coordination of care. Thank you for this very appropriate consult.
[2019-07-07] MEDS: Hydrocortisone Sod Succ/PF 100 mg/2 ml Vial IVP SCH ×2 (13:18→17:39)
--- NOTE | 2019-07-07 13:34 | PRG ---
DATE OF SERVICE: 07/07/2019 Mr. Bernstein is a 48-year-old man with history of significant coronary artery disease, dialysis dependent, and end-stage renal disease, is admitted following a fall off his wheelchair. The patient is status post bilateral BKA, who has new left subtrochanteric femur fracture following this fall. The patient had a non-ST elevation myocardial infarction two days ago. He has since been successfully extubated from mechanical ventilator support. He remains awake and alert. He is tolerating dialysis this morning. I discussed with Orthopedic Surgery and they have raised concerns that the patient's osteoporotic bone may not hold operative repair. The patient additionally has a significant risk for perioperative cardiac complications given his preexisting comorbidity. I recommended to the patient and his family to consider comfort care in the setting of hospice. The discussion was through a international representative. The patient and his indicated adequate understanding of information provided. The patient himself affirmed that he was at peace with the decision not to proceed with surgery. Hospice would therefore be consulted to Assume care at this time. I want to thank Dr. Aranda and Dr. Lam for the excellent contusion in this patient's care. Job ID: [id number]
[2019-07-07] MEDS: Cyclobenzaprine 10 MG TAB PO PRN (15:20)
[2019-07-07 20:04] VITALS: BP 141/86
[2019-07-07 20:15] VITALS: TEMP 98
== END 2019-07-07 20:51 | disposition hospice, inpatient (51) | DRG 535 ==
LOC: ERS 18:41 → SURG A 22:55 → ERHOLD 23:27 → SURG A 07-05 02:27 → CCU 07-05 13:00
PROVIDERS: ADMIT Surgery; ATTEND Surgery
PROC: 5A1935Z Respiratory Ventilation, Less than 24 Consecutive Hours (ICD-10-PCS; principal; 2019-07-05)
PROC: 0BH17EZ Insertion of Endotracheal Airway into Trachea, Via Natural or Artificial Opening (ICD-10-PCS; 2019-07-05)
PROC: 5A1D70Z Performance of Urinary Filtration, Intermittent, Less than 6 Hours Per Day (ICD-10-PCS; 2019-07-06)
DX: S72.22XA Displaced subtrochanteric fracture of left femur, initial encounter for closed fracture (principal); N18.6 End stage renal disease; J96.00 Acute respiratory failure, unspecified whether with hypoxia or hypercapnia; I21.A1 Myocardial infarction type 2; Z66 Do not resuscitate; Z51.5 Encounter for palliative care; I12.0 Hypertensive chronic kidney disease with stage 5 chronic kidney disease or end stage renal disease; E87.5 Hyperkalemia; E11.22 Type 2 diabetes mellitus with diabetic chronic kidney disease; E11.649 Type 2 diabetes mellitus with hypoglycemia without coma; E11.51 Type 2 diabetes mellitus with diabetic peripheral angiopathy without gangrene; K74.60 Unspecified cirrhosis of liver; S80.812A Abrasion, left lower leg, initial encounter; S80.811A Abrasion, right lower leg, initial encounter; W05.0XXA Fall from non-moving wheelchair, initial encounter; Z99.2 Dependence on renal dialysis; Z74.01 Bed confinement status; Z99.3 Dependence on wheelchair; Z79.899 Other long term (current) drug therapy; Z89.512 Acquired absence of left leg below knee; Z89.511 Acquired absence of right leg below knee
CPT/HCPCS: 36415; 36416; 71045; 80048; 80053; 80074; 82533; 82553; 82805; 83735; 84100; 84132; 84484; 85025; 85610; 87340; 92950; 93005; 93010; 93306; 94002; 94003; 96374; 96375; 96376; J0131; J0360; J1720; J2060; J2270; J2310; J2405; J2704; J3010; J3490; P9045; Q5105; S0028